=== PATIENT | female | born 1980 | race Caucasian/White ===

== ENCOUNTER → 2021-04-15 | Outpatient (CLI) | payer OTHER ==
[2021-04-17 12:10] LABS: HPV 16 Negative (Negative); HPV 18 Negative (Negative); HPV OTHER HR TYPES Negative (Negative)
== END | disposition home or self-care (01) ==
LOC: LAB SHORT 15:39
PROVIDERS: Obstetrics & Gynecology
DX: Z12.4 Encounter for screening for malignant neoplasm of cervix (principal)
CPT/HCPCS: 87624; G0123

== ENCOUNTER → 2021-06-13 | Outpatient (CLI) | payer BC | END | disposition home or self-care (01) | LOC: LAB SHORT 14:16 → LAB 14:16 | DX: R30.0 Dysuria (principal); R39.15 Urgency of urination | CPT/HCPCS: 87077; 87086; 87186 ==

== ENCOUNTER 2022-07-30 12:03 | Day surgery (SDC) | payer BC ==
[~2022-07-30] VITALS: Ht 175.3 cm; Wt 65.1 kg
[2022-07-30] VITALS (12 sets, daily range): BP systolic 108–126; BP diastolic 57–97
[~2022-07-30 12:03] MED LIST: ERGO400 PO; IRON18 MG PO
--- NOTE | 2022-07-30 12:37 | NUR ---
[facility] in [facility] warming gown applied. History, Chart, Medications and Allergies reviewed before start of procedure.Lungs clear T/O to Auscultation. Patient confirms NPO status and agrees with scheduled surgery. Pre-Op teaching done. Pt verbalizes understanding. Patient States Post-Procedure ride home has been arranged. Patient reports completing Chlorhexadine shower X2 prior to admission to hospital.
--- NOTE | 2022-07-30 15:37 | NUR ---
PT ARRIVED TO THE ROOM AT APPROXIMATELY 1530. PT REPORTS PAIN IS A 5-6/10 BUT TOLERABLE. PT HAS SCANT BLEEDING PRESENT ON EMMANUEL PAD. ABD LAP INCISIONS X2 CLOSED WITH TISSUE ADHESIVE AND C/D/I. PT IS SLIGHTLY TREMULOUS AND REPORTS FEELING COLD. HEATING PAD IN PLACE. WILL CONTINUE TO MONITOR.
[2022-07-30 18:16] LABS: BASOPHILS ABSOLUTE AUTO 0.04 K/mm3 (0.00-0.23); BASOPHILS PERCENT AUTO 0 % (0-2); EOSINOPHILS PERCENT AUTO 0 % (0-6); Hematocrit 39.8 % (33.0-51.0); Hemoglobin 13.5 g/dL (11.5-16.0); IMMATURE GRAN ABSOLUTE AUTO 0.06 K/mm3 (0.00-0.10); IMMATURE GRAN PERCENT AUTO 0 % (0-1); LYMPHOCYTES ABSOLUTE AUTO 1.06 K/mm3 (0.84-5.20); LYMPHOCYTES PERCENT AUTO 7 % (21-46); MONOCYTES ABSOLUTE AUTO 0.29 K/mm3 (0.16-1.47); MONOCYTES PERCENT AUTO 2 % (4-13); Mean Corpuscular HGB 29.3 pg (26.0-34.0); Mean Corpuscular HGB Conc 33.9 g/dL (31.5-36.5); Mean Corpuscular Volume 86 fL (80-100); Mean Platelet Volume 10.1 fL (9.1-12.4); NEUTROPHILS ABSOLUTE AUTO 14.27 K/mm3 (1.96-9.15); NEUTROPHILS PERCENT AUTO 91 % (41-73); Platelet Count 283 K/mm3 (150-400); RDW Coefficient Variation 12.4 % (11.7-14.2); RDW Standard Deviation 39.3 fL (35.1-46.3); Red Blood Cell Count 4.61 M/mm3 (3.80-5.20); White Blood Cell Count 15.72 K/mm3 (4.00-11.30)
[2022-07-30] MEDS ORDERED: IBU800 MG PO (19:46)
[2022-07-30] MEDS ORDERED: Percocet 5-3251 EACH PO (19:46)
--- NOTE | 2022-07-30 19:52 | NUR ---
SHIFT SUMMARY REACHED OUT TO DR. MOTA AT APPROXIMATELY 1730 AND 1900 REGARDING PLAN FOR DISCHARGE, PHONE WENT TO [employer]. REACHED OUT A THIRD TIME THROUGH ANSWERING SERVICE. NOTIFIED DR. MOTA THAT PT HAD VOIDED A SMALL AMOUNT AFTER LEWIS CATH WAS REMOVED AND BLADDER SCAN WAS UNABLE TO FIND THE BLADDER AFTER PT VOIDED. PT TOLERATING PO, VSS, PT ABLE TO AMBULATE, AND PAIN MANAGED. REPORT GIVEN TO FRANK MENDEZ.
--- NOTE | 2022-07-30 20:05 | NUR ---
DISCHARGE PT DISCHARGED, PT EXPRESSED UNDERSTADING OF DISCHARGE INSTRUCTIONS. POST OP VITALS STABLE. SURGICAL SITE WNL. C/D/I. PT TOLERATING INTAKE. PT MEDICATED FOR PAIN. BELONGINGS IN PLACE.
--- NOTE | 2022-07-31 14:18 | NUR ---
07/31/22 1418 Marsha Mg VERIFICATIONS: EDIT CHART.
== END 2022-07-30 20:34 | disposition home or self-care (01) ==
LOC: ORSCMMR 12:03 → ORD 13:45 → ORSCMMR 13:45 → SURS 15:35 → ORSCMMR 20:34
PROVIDERS: Obstetrics & Gynecology
PROC: 0UT9FZZ Resection of Uterus, Via Natural or Artificial Opening With Percutaneous Endoscopic Assistance (ICD-10-PCS; principal; 2022-07-30 13:15)
PROC: 0UT7FZZ Resection of Bilateral Fallopian Tubes, Via Natural or Artificial Opening With Percutaneous Endoscopic Assistance (ICD-10-PCS; principal; 2022-07-30 13:15)
DX: N81.2 Incomplete uterovaginal prolapse (principal); D25.9 Leiomyoma of uterus, unspecified; N84.1 Polyp of cervix uteri; N83.8 Other noninflammatory disorders of ovary, fallopian tube and broad ligament
CPT/HCPCS: 36415; 85025; 88307; A9270; J0690; J1885; J2250; J2370; J2405; J2704; J3010; J7120